=== PATIENT | female | born 1980 ===

== ENCOUNTER → 2018-12-02 22:08 | Outpatient (REF) | payer OTHER, SELFPAY | LOC: LAB 22:08 | PROVIDERS: Visit Provider Family Medicine | DX: Z11.1 Encounter for screening for respiratory tuberculosis (principal); Z11.3 Encounter for screening for infections with a predominantly sexual mode of transmission | CPT/HCPCS: 36415; 86780 ==

== ENCOUNTER → 2018-12-06 22:52 | Outpatient (REF) | payer OTHER, SELFPAY ==
[2018-12-10 16:34] LABS: Mitogen-NIL > 10.00 IU/mL; NIL 0.48 IU/mL; QuantiFERON TB NEGATIVE (Negative); TB1-NIL 0.09 IU/mL; TB2-NIL 0.07 IU/mL
== END ==
LOC: LAB 22:52
PROVIDERS: Visit Provider Family Medicine
DX: Z11.3 Encounter for screening for infections with a predominantly sexual mode of transmission (principal); Z11.1 Encounter for screening for respiratory tuberculosis
CPT/HCPCS: 36415; 86480; 86780